=== PATIENT | female | born 1995 | race African-American/Black ===

== ENCOUNTER 2016-10-04 23:00 | Emergency (ER) | payer SELFPAY ==
[~2016-10-04 23:00] MED LIST: CIPRO PO; HERBS; PROMETHAZINE HC25 MG PO; TYLENOL #3 PO; VIBRAMYCIN100 M1 PO
[2016-10-05] MEDS ORDERED: ALDACTONE (00:13)
== END 2016-10-05 02:52 | disposition home or self-care (01) ==
LOC: SED 23:00
DX: A60.04 Herpesviral vulvovaginitis (principal)
CPT/HCPCS: 87253; 99282